=== PATIENT | female | born 1975 ===

== ENCOUNTER 2022-10-03 15:22 | Observation (INO) | payer MEDICARE, BC, MEDICAID, SELFPAY ==
[2022-10-03] VITALS (12 sets, daily range): BP systolic 98–122; BP diastolic 67–79; PULSE 59–76; RESP 6–22; TEMP 36.5; O2SAT 98–100; BMI 19.0
--- NOTE | ~2022-10-03 | CT_ITS ---
EXAMINATION: CT CHEST, ABDOMEN AND PELVIS WITHOUT CONTRAST CLINICAL INFORMATION: Pneumonia and colitis COMPARISON: No pertinent prior studies are available for comparison. TECHNIQUE: Multidetector volumetric imaging was performed from the thoracic inlet through the pubic symphysis without IV contrast. Sagittal and coronal reformatted images were obtained on the technologist's workstation. This CT examination was performed using dose optimization techniques as appropriate, variously including the following: *Automated exposure control *Adjustment of mA and/or kV according to patient size (this includes techniques or standardized protocols for targeted exams where dose is matched to indication/reason for exam; i.e. extremities or head) *Use of iterative reconstruction technique DLP: 493 mGy-cm FINDINGS: CHEST: Lung: There is evidence of COPD with bullous formation. No suspicious lung nodules or masses are seen. No consolidations. Bibasilar atelectasis is present. Mediastinum: The mediastinum is normal. The central vascular structures are unremarkable. No hilar or mediastinal lymphadenopathy. Pericardium/Pleura: No significant effusion. No pleural mass or thickening. Chest Wall/Axilla: Unremarkable ABDOMEN/PELVIS: Peritoneal Space: No significant free air or free fluid identified. Liver, Gallbladder, Biliary Tree: The liver is mildly enlarged at 17.6 cm but demonstrates normal attenuation and shape. No focal hepatic lesion or biliary ductal dilatation is present. The gallbladder is distended and contains small layering calculi without gallbladder wall thickening or obvious pericholecystic inflammatory changes. Pancreas: Unremarkable Spleen: Unremarkable Adrenal Glands: Unremarkable Kidneys and ureters: The kidneys are normal in size, shape, and attenuation. No hydronephrosis, hydroureter, or calculi seen. No perinephric stranding. Bladder: Unremarkable Gastrointestinal Tract: A small hiatal hernia is present. The small and large bowel are unremarkable. The appendix is unremarkable. Abdominal Wall: No significant hernia is appreciated. Lymph Nodes: No lymphadenopathy. Vascular: The aorta appears normal.. The IVC appears unremarkable. PELVIC VISCERA: Unremarkable OSSEUS STRUCTURES: Moderate degenerative changes are noted in the spine from L2 through L5. No bony destructive lesions are seen. CT/CT abdomen pelvis wo IV con IMPRESSION: 1. No evidence of pneumonia or colitis. 2. Incidental note made of COPD, mild hepatomegaly and cholelithiasis. Fleischner guidelines were followed.
--- NOTE | ~2022-10-03 | CT_ITS ---
EXAMINATION: CT HEAD WITHOUT CONTRAST CT CERVICAL SPINE WITHOUT CONTRAST CLINICAL INFORMATION: Drowsiness. COMPARISON: None. TECHNIQUE: Contiguous axial imaging was performed from the skullbase to vertex without intravenous administration of contrast. Multidetector helical imaging was performed through the cervical spine. This CT examination was performed using dose optimization techniques as appropriate, variously including the following: *Automated exposure control *Adjustment of mA and/or kV according to patient size (this includes techniques or standardized protocols for targeted exams where dose is matched to indication/reason for exam; i.e. extremities or head) *Use of iterative reconstruction technique DLP: 924 mGy-cm. FINDINGS: HEAD: There is no evidence of acute intracranial hemorrhage or territorial infarction. No abnormal mass effect or midline shift is seen. Goodson to white matter differentiation is well preserved. No extra-axial fluid collections are identified. The ventricles are normal in size. Brain parenchymal attenuation is normal. The osseous structures and soft tissues are normal. The mastoid air cells and visualized portions of the paranasal sinuses are well aerated. CERVICAL SPINE: No acute fracture is identified in the cervical spine. There is a moderate reversal of the normal cervical lordosis and mild leftward curvature of the cervical spine. Moderate to severe disc space narrowing with disc opacify complexes noted at the C5-C6 and C6-C7 levels. The atlantoaxial articulation is normally maintained. The paraspinal soft tissues are normal. The lung apices are clear with moderate emphysematous changes. CT/CT cervical spine wo IV con IMPRESSION: 1. No acute intracranial pathology. 2. No evidence of acute cervical spine traumatic injury. Moderate lower cervical spondylosis and reversal of the normal cervical lordosis. 3. Moderate emphysematous changes in the visualized lungs.
--- NOTE | 2022-10-03 16:36 | ECG_ITS ---
Test Reason : SLEEPY Blood Pressure : / mmHG Vent. Rate : 060 BPM Atrial Rate : 060 BPM P-R Int : 156 ms QRS Dur : 094 ms QT Int : 452 ms P-R-T Axes : 073 053 047 degrees QTc Int : 452 ms Normal sinus rhythm Normal ECG No previous ECGs available Referred By: Dragan Chaney Electronically Signed By:Jossue Cueva
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
[2022-10-03 17:30] LABS: MANUAL DIFF FLAG NO
[2022-10-03 17:33] LABS: Basophils Percent Auto 0.2 % (0-2); Eosinophils Absolute Auto 0.3 X10*3/uL (0.0-0.4); Eosinophils Percent Auto 4.7 % (0-4); Hematocrit 22.6 % (37.0-47.0); Hemoglobin 7.1 g/dl (12.0-16.0); Imm Gran Abs Auto 0.01 X10*3/uL (0.00-0.03); Imm Gran Pct Auto 0.2 % (0.0-0.4); Lymphocytes Absolute Auto 3.1 X10*3/uL (1.2-4.9); Lymphocytes Percent Auto 55.3 % (20-40); Mean Corpuscular HGB Conc 31.4 g/dl (31.0-35.0); Mean Corpuscular Hemoglobin 27.3 pg (27.0-33.0); Mean Corpuscular Volume 86.9 fL (80.0-98.0); Mean Platelet Volume 10.4 fL (9.4-12.3); Monocytes Absolute Auto 0.5 X10*3/uL (0.1-1.2); Monocytes Percent Auto 9.4 % (2-11); Neutrophils Absolute Auto 1.7 x10*3/uL (2.0-8.3); Neutrophils Percent Auto 30.2 % (45-73); Platelet Count 186 X10*3/uL (160-400); Red Cell Distribution Width 16.2 % (11.0-16.0); White Blood Count 5.5 X10*3/uL (4.8-10.8)
[2022-10-03 17:37] LABS: INTERNATIONAL NORM RATIO 0.9 (0.9-1.1); Prothrombin Time 9.9 SEC (10.0-13.1)
[2022-10-03 17:39] LABS: Partial Thromboplastin Time 28.9 SEC (26.0-36.4)
[2022-10-03 17:43] LABS: Ammonia 20 umol/L (13-55)
[2022-10-03 17:44] LABS: Lactic Acid 0.4 mmol/L (0.5-2.0)
[2022-10-03 17:47] LABS: Ethanol < 10 mg/dL
[2022-10-03 17:49] LABS: Anion Gap 13 (12-20)
[2022-10-03 17:50] LABS: Alanine Aminotransferase 7 U/L (0-31); Albumin Level 3.3 g/dL (3.5-5.0); Alkaline Phosphatase 48 U/L (39-117); Aspartate Amino Transferase 30 U/L (5-31); Bilirubin Total 0.2 mg/dL (0.0-1.0); Blood Urea Nitrogen 25 mg/dL (9-16); Calcium 8.4 mg/dL (8.4-10.2); Carbon Dioxide 24 mmol/L (22-29); Chloride 107 mmol/L (96-108); Creatinine Clr Calc Pharmacy 37.4; Estimated Glomerular Filt Rate 39; Glucose Random 91 mg/dL (60-115); Potassium 3.5 mmol/L (3.3-5.1); Sodium 140 mmol/L (135-145); Total Protein 5.8 g/dL (6.5-8.0)
[2022-10-03 18:02] LABS: Acetaminophen LAB < 17 mcg/mL (<30); Salicylate < 5.0 mg/dL (15-30)
[2022-10-03 18:43] LABS: Appearance Urine Clear; Color Urine Yellow; Glucose Urine UA Negative (Negative); Leukocyte Esterase Urine Negative (Negative); Nitrite Urine Negative (Negative); PH 5.5 (5.0-9.0); Urine Blood Negative (Negative); Urine Ketones Negative (Negative); Urine Protein Negative (Neg-Trace)
[2022-10-03 18:55] LABS: Amphetamine Screen Urine Not Detected (Not Detect); Barbiturates, Urine Not Detected (Not Detect); Benzodiazepines Screen Urine Not Detected (Not Detect); Cannabinoid Screen Urine Not Detected (Not Detect); Cocaine Screen Urine Not Detected (Not Detect); Opiate Screen Urine Not Detected (Not Detect); Phencyclidine Screen Urine Not Detected (Not Detect)
[2022-10-03 18:56] LABS: Fentanyl, urine Not Detected (Not Detect)
[2022-10-03] MEDS: 0.9 % Sodium Chloride 1,000 ML 999 ML IV ×2 (19:00→19:03)
[2022-10-03 20:24] LABS: OBS Int Ctl Valid YES; OBS1 NEGATIVE (NEGATIVE)
[2022-10-03 20:52] LABS: Troponin-I High Sensitivity < 2.7 ng/L (<3.5-17.0)
[2022-10-03 20:53] LABS: Magnesium 2.2 mg/dL (1.6-2.6)
[2022-10-03] MEDS: Haloperidol Lactate 5 MG/ML VIAL IM (21:26)
[2022-10-03] MEDS: LORazepam 2 MG/ML VIAL IM (21:26)
[2022-10-03] MEDS: diphenhydrAMINE HCL 50 MG/ML VIAL IM (21:26)
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
--- NOTE | 2022-10-03 22:01 | PC.NURSE ---
Pt asleep at this time, we were able to get blood from the pt with no complications. senior marketing data analyst has been applied. 1:1 Sitter is at the bedside with the pt.
[2022-10-03 22:14] LABS: VBG Base Excess -3.5 mmol/L; VBG HCO3 22 mmol/L (22-26); VBG pCO2 44 mmHg; VBG pO2 52 mmHg
[2022-10-03 22:16] LABS: Venous Blood Gas Refer to POC result
--- NOTE | 2022-10-03 22:36 | PHA.MEDREC ---
Pharmacy Consult ? Medication Reconciliation Pharmacy has completed the medication reconciliation.
[2022-10-03] MEDS: Naloxone HCl 2 MG/2 ML SYRINGE 1 MG IM (22:42)
--- NOTE | 2022-10-03 22:50 | P.HPHOSP_ITS ---
History of Present Illness Date of Service: 10/03/22 Attending physician on admission: Temitope Gould Chief Complaint: ams, lethargy 47 year old female with history of anxiety/depression, gerd, hypothyroidism presented to the ED for evaluation of lethargy. On exam, patient is unrespons jonathon, unarousable to pain, unable to give history. Per ED note PMFSH Social History Advance Directives: No Advance Directives Information Provided: No Meds Allergies Allergy/AdvReac Type Severity Reaction Status Date / Time No Known Allergies Allergy Verified 10/03/22 16:36 Home Medications Medication Instructions Recorded Confirmed Last Taken Type baclofen 10 mg tablet 10 mg PO BEDTIME 10/03/22 10/03/22 Unknown History baclofen 10 mg tablet 20 mg PO BID 10/03/22 10/03/22 Unknown History clonazepam 0.5 mg disintegrating 0.5 mg PO DAILY PRN anxiety 10/03/22 10/03/22 Unknown History tablet duloxetine 60 mg capsule,delayed 60 mg PO BEDTIME 10/03/22 10/03/22 Unknown History release gabapentin 250 mg/5 mL oral 1,200 mg PO TID 10/03/22 10/03/22 Unknown History solution levothyroxine 75 mcg tablet 75 mcg PO QAM 10/03/22 10/03/22 Unknown History omeprazole 40 mg capsule,delayed 40 mg PO DAILY 10/03/22 10/03/22 Unknown History release quetiapine 50 mg tablet 50 mg PO TID 10/03/22 10/03/22 Unknown History trazodone 100 mg tablet 100 - 150 mg PO BEDTIME 10/03/22 10/03/22 Unknown History Physical Exam Vital Signs and Narrative: Vital Signs: Last Vital Signs Temp 97.7 F 10/03/22 15:52 Pulse 62 10/03/22 18:20 Resp 12 10/03/22 18:20 BP 114/77 10/03/22 20:05 Pulse Ox 99 10/03/22 18:20 O2 Del Method Room Air 10/03/22 18:20 BMI result Body Mass Index 19.0 Results Labs 10/03/22 17:21 10/03/22 17:21 Labs: Laboratory Results - last 24 hr 10/03/22 10/03/22 10/03/22 17:21 17:21 17:21 MCV 86.9 MCH 27.3 MCHC 31.4 RDW 16.2 H Plt Count 186 MPV 10.4 Immature Gran % (Auto) 0.2 Neut % (Auto) 30.2 L Lymph % (Auto) 55.3 H Jefferson % (Auto) 9.4 Eos % (Auto) 4.7 H Baso % (Auto) 0.2 Lymph # (Auto) 3.1 Jefferson # (Auto) 0.5 Eos # (Auto) 0.3 Baso # (Auto) 0.0 Abs Immat Gran (auto) 0.01 Absolute Neuts (auto) 1.7 L Absolute Nucleated RBC 0.000 Nucleated RBC % (auto) 0.0 PT INR APTT VBG pH VBG pCO2 VBG pO2 VBG HCO3 VBG O2 Saturation VBG Base Excess Anion Gap 13 Estim Creat Clear Calc 37.4 Estimated GFR 39 Random Glucose 91 Lactic Acid 0.4 L Calcium 8.4 Magnesium 2.2 Total Bilirubin 0.2 AST 30 ALT 7 Alkaline Phosphatase 48 Ammonia Total Creatine Kinase Troponin I High Sens Total Protein 5.8 L Albumin 3.3 L Urine Color Urine Appearance Urine pH Ur Specific Hamilton Urine Protein Urine Glucose (UA) Urine Ketones Urine Blood Urine Nitrite Ur Leukocyte Esterase Stool Occult Blood Salicylates < 5.0 L Urine Opiates Screen Urine Fentanyl Screen Acetaminophen < 17 Ur Barbiturates Screen Ur Phencyclidine Scrn Ur Amphetamines Screen U Benzodiazepines Scrn Urine Cocaine Screen U Marijuana (THC) Screen Ethyl Alcohol Blood Type Antibody Screen 10/03/22 10/03/22 10/03/22 17:21 17:21 17:21 MCV MCH MCHC RDW Plt Count MPV Immature Gran % (Auto) Neut % (Auto) Lymph % (Auto) Jefferson % (Auto) Eos % (Auto) Baso % (Auto) Lymph # (Auto) Jefferson # (Auto) Eos # (Auto) Baso # (Auto) Abs Immat Gran (auto) Absolute Neuts (auto) Absolute Nucleated RBC Nucleated RBC % (auto) PT 9.9 L INR 0.9 APTT 28.9 VBG pH VBG pCO2 VBG pO2 VBG HCO3 VBG O2 Saturation VBG Base Excess Anion Gap Estim Creat Clear Calc Estimated GFR Random Glucose Lactic Acid Calcium Magnesium Total Bilirubin AST ALT Alkaline Phosphatase Ammonia 20 Total Creatine Kinase 352 H Troponin I High Sens Total Protein Albumin Urine Color Urine Appearance Urine pH Ur Specific Hamilton Urine Protein Urine Glucose (UA) Urine Ketones Urine Blood Urine Nitrite Ur Leukocyte Esterase Stool Occult Blood Salicylates Urine Opiates Screen Urine Fentanyl Screen Acetaminophen Ur Barbiturates Screen Ur Phencyclidine Scrn Ur Amphetamines Screen U Benzodiazepines Scrn Urine Cocaine Screen U Marijuana (THC) Screen Ethyl Alcohol Blood Type Antibody Screen 10/03/22 10/03/22 10/03/22 17:22 18:13 18:36 MCV MCH MCHC RDW Plt Count MPV Immature Gran % (Auto) Neut % (Auto) Lymph % (Auto) Jefferson % (Auto) Eos % (Auto) Baso % (Auto) Lymph # (Auto) Jefferson # (Auto) Eos # (Auto) Baso # (Auto) Abs Immat Gran (auto) Absolute Neuts (auto) Absolute Nucleated RBC Nucleated RBC % (auto) PT INR APTT VBG pH VBG pCO2 VBG pO2 VBG HCO3 VBG O2 Saturation VBG Base Excess Anion Gap Estim Creat Clear Calc Estimated GFR Random Glucose Lactic Acid Calcium Magnesium Total Bilirubin AST ALT Alkaline Phosphatase Ammonia Total Creatine Kinase Troponin I High Sens Total Protein Albumin Urine Color Yellow Urine Appearance Clear Urine pH 5.5 Ur Specific Hamilton 1.010 Urine Protein Negative Urine Glucose (UA) Negative Urine Ketones Negative Urine Blood Negative Urine Nitrite Negative Ur Leukocyte Esterase Negative Stool Occult Blood Salicylates Urine Opiates Screen Urine Fentanyl Screen Acetaminophen Ur Barbiturates Screen Ur Phencyclidine Scrn Ur Amphetamines Screen U Benzodiazepines Scrn Urine Cocaine Screen U Marijuana (THC) Screen Ethyl Alcohol < 10 Blood Type A Positive Antibody Screen NEGATIVE 10/03/22 10/03/22 10/03/22 18:36 19:56 20:02 MCV MCH MCHC RDW Plt Count MPV Immature Gran % (Auto) Neut % (Auto) Lymph % (Auto) Jefferson % (Auto) Eos % (Auto) Baso % (Auto) Lymph # (Auto) Jefferson # (Auto) Eos # (Auto) Baso # (Auto) Abs Immat Gran (auto) Absolute Neuts (auto) Absolute Nucleated RBC Nucleated RBC % (auto) PT INR APTT VBG pH VBG pCO2 VBG pO2 VBG HCO3 VBG O2 Saturation VBG Base Excess Anion Gap Estim Creat Clear Calc Estimated GFR Random Glucose Lactic Acid Calcium Magnesium Total Bilirubin AST ALT Alkaline Phosphatase Ammonia Total Creatine Kinase Troponin I High Sens < 2.7 Total Protein Albumin Urine Color Urine Appearance Urine pH Ur Specific Hamilton Urine Protein Urine Glucose (UA) Urine Ketones Urine Blood Urine Nitrite Ur Leukocyte Esterase Stool Occult Blood NEGATIVE Salicylates Urine Opiates Screen Not Detected Urine Fentanyl Screen Not Detected Acetaminophen Ur Barbiturates Screen Not Detected Ur Phencyclidine Scrn Not Detected Ur Amphetamines Screen Not Detected U Benzodiazepines Scrn Not Detected Urine Cocaine Screen Not Detected U Marijuana (THC) Screen Not Detected Ethyl Alcohol Blood Type Antibody Screen 10/03/22 22:06 MCV MCH MCHC RDW Plt Count MPV Immature Gran % (Auto) Neut % (Auto) Lymph % (Auto) Jefferson % (Auto) Eos % (Auto) Baso % (Auto) Lymph # (Auto) Jefferson # (Auto) Eos # (Auto) Baso # (Auto) Abs Immat Gran (auto) Absolute Neuts (auto) Absolute Nucleated RBC Nucleated RBC % (auto) PT INR APTT VBG pH 7.30 L VBG pCO2 44 VBG pO2 52 VBG HCO3 22 VBG O2 Saturation 80.0 VBG Base Excess -3.5 Anion Gap Estim Creat Clear Calc Estimated GFR Random Glucose Lactic Acid Calcium Magnesium Total Bilirubin AST ALT Alkaline Phosphatase Ammonia Total Creatine Kinase Troponin I High Sens Total Protein Albumin Urine Color Urine Appearance Urine pH Ur Specific Hamilton Urine Protein Urine Glucose (UA) Urine Ketones Urine Blood Urine Nitrite Ur Leukocyte Esterase Stool Occult Blood Salicylates Urine Opiates Screen Urine Fentanyl Screen Acetaminophen Ur Barbiturates Screen Ur Phencyclidine Scrn Ur Amphetamines Screen U Benzodiazepines Scrn Urine Cocaine Screen U Marijuana (THC) Screen Ethyl Alcohol Blood Type Antibody Screen Imaging Radiologist's Impressions: Impressions Cervical Spine CT 10/03/22 19:56 IMPRESSION: 1. No acute intracranial pathology. 2. No evidence of acute cervical spine traumatic injury. Moderate lower cervical spondylosis and reversal of the normal cervical lordosis. 3. Moderate emphysematous changes in the visualized lungs. Head CT 10/03/22 19:56 IMPRESSION: 1. No acute intracranial pathology. 2. No evidence of acute cervical spine traumatic injury. Moderate lower cervical spondylosis and reversal of the normal cervical lordosis. 3. Moderate emphysematous changes in the visualized lungs. Abdomen/Pelvis CT 10/03/22 20:01 IMPRESSION: 1. No evidence of pneumonia or colitis. 2. Incidental note made of COPD, mild hepatomegaly and cholelithiasis. Fleischner guidelines were followed. Chest CT 10/03/22 20:01 IMPRESSION: 1. No evidence of pneumonia or colitis. 2. Incidental note made of COPD, mild hepatomegaly and cholelithiasis. Fleischner guidelines were followed. Assessment and Plan Time Spent With Patient Time: Total time managing care of this patient today ____ minutes.
--- NOTE | 2022-10-03 22:53 | PC.NURSE ---
Pt rspitrations noted to be decreased, Hospital provider at bedside ordered narcan. Pt IV in left AC was pulled and not working and IV was removed. Pt administered IM with provider approval at bedside. A new 20g IV was placed in the right forearm. Pt did respond to painful stimuli. Pt right arm removed from restraints. Pt still asleep, moves and groans in response to sternal rub.
--- NOTE | 2022-10-03 23:05 | PC.NURSE ---
Dr Gould at bedside, I removed the left arm from restraints. Pt respirations around 11 at this time, O2 99%. Pt still asleep, responsive to hard sternal rub only.
--- NOTE | 2022-10-03 23:27 | PC.NURSE ---
Pt responsive to sternal rub, is incoherent when she wakes up and quickly falls back to sleep. Respirations at 12 at this time
[2022-10-04] VITALS (25 sets, daily range): BP systolic 98–175; BP diastolic 53–134; PULSE 52–112; RESP 12–22; TEMP 36.3–37.1; O2SAT 94–100
--- NOTE | 2022-10-04 00:13 | PC.NURSE ---
Pt began to wake up, sitting up and trying to get out of bed. Pt had an episode of incontinence. Pt was changed and redirected into bed. Pt is struggling to follow basic instructions. Pt is very sleepy and is not able to answer questions appropriately.
--- NOTE | 2022-10-04 00:57 | PC.NURSE ---
Pt asleep in bed. Frequently will sit up in bed. Pt is very tired, is willing to sit back and fall back to sleep.
[2022-10-04 01:15] LABS: ABG Refer to POC result
[2022-10-04 01:15] LABS: ABG Base Excess -2.6 mmol/L; ABG HCO3 22 mmol/L (22-26); ABG pCO2 40 mmHg (32-45); ABG pH 7.35 (7.35-7.45); ABG pO2 96 mmHg (83-108)
--- NOTE | 2022-10-04 01:16 | PC.NURSE ---
Pt has been sitting up, attempting to get out of bed. Pt is not following commands. Pt gets put back in bed where she falls asleep for a minute before sitting up and trying to get out of bed again.
--- NOTE | 2022-10-04 01:17 | PM.IMHP ---
History of Present Illness Date of Service: 10/04/22 Chief Complaint: Altered mentation This is a 47-year-old female with pertinent history of hypothyroidism, mood disorder, gastroesophageal reflux disease, chronic back pain who was brought to the ER for evaluation of decreased responsiveness of decreased responsiveness. Unable to obtain history review of systems of the patient. History obtained from chart review and ER provider. Patient was previously admitted at [facility] for similar complaints, encephalopathy was thought to be due to high doses of gabapentin and baclofen. Patient at the time of arrival was with minimal responsiveness even after Narcan. UDS negative. While in the ER, patient became hyperactive and needed to be chemically restrained. She is only eye opening to painful stimulus at the time of my examination. Review of Systems Review of Systems: Yes Unobtainable due to mental status PMFSH Medical History (Updated 10/04/22 @ 01:33 by Temitope Gould MD) Chronic pain Hypothyroid Insomnia Mood disorder Pertinent family history: Unable to obtain Social History Advance Directives: No Advance Directives Information Provided: No Meds Allergies Allergy/AdvReac Type Severity Reaction Status Date / Time No Known Allergies Allergy Verified 10/03/22 16:36 Home Medications Medication Instructions Recorded Confirmed Last Taken Type baclofen 10 mg tablet 10 mg PO BEDTIME 10/03/22 10/03/22 Unknown History baclofen 10 mg tablet 20 mg PO BID 10/03/22 10/03/22 Unknown History clonazepam 0.5 mg disintegrating 0.5 mg PO DAILY PRN anxiety 10/03/22 10/03/22 Unknown History tablet duloxetine 60 mg capsule,delayed 60 mg PO BEDTIME 10/03/22 10/03/22 Unknown History release gabapentin 250 mg/5 mL oral 1,200 mg PO TID 10/03/22 10/03/22 Unknown History solution levothyroxine 75 mcg tablet 75 mcg PO QAM 10/03/22 10/03/22 Unknown History omeprazole 40 mg capsule,delayed 40 mg PO DAILY 10/03/22 10/03/22 Unknown History release quetiapine 50 mg tablet 50 mg PO TID 10/03/22 10/03/22 Unknown History trazodone 100 mg tablet 100 - 150 mg PO BEDTIME 10/03/22 10/03/22 Unknown History Physical Exam Vital Signs and Narrative: Vital Signs: Last Vital Signs Temp 97.7 F 10/03/22 15:52 Pulse 52 10/04/22 00:03 Resp 14 10/04/22 00:03 BP 111/72 10/04/22 00:03 Pulse Ox 99 10/04/22 00:03 O2 Del Method Room Air 10/04/22 00:03 BMI result Body Mass Index 19.0 Young female lying in bed in no distress Neck supple, no JVD Bradycardic, S1-S2 heard Decreased respirations, no wheezing or crackles appreciated Abdomen soft nontender, no guarding, no rigidity Patient is drowsy and only eye opening to painful stimulus Results Labs 10/03/22 17:21 10/03/22 17:21 Labs: Laboratory Results - last 24 hr 10/03/22 10/03/22 10/03/22 17:21 17:21 17:21 MCV 86.9 MCH 27.3 MCHC 31.4 RDW 16.2 H Plt Count 186 MPV 10.4 Immature Gran % (Auto) 0.2 Neut % (Auto) 30.2 L Lymph % (Auto) 55.3 H [place] % (Auto) 9.4 Eos % (Auto) 4.7 H Baso % (Auto) 0.2 Lymph # (Auto) 3.1 [place] # (Auto) 0.5 Eos # (Auto) 0.3 Baso # (Auto) 0.0 Abs Immat Gran (auto) 0.01 Absolute Neuts (auto) 1.7 L Absolute Nucleated RBC 0.000 Nucleated RBC % (auto) 0.0 PT INR APTT O2 Saturation ABG pH at Pt Temp ABG pCO2 at Pt Temp ABG pO2 at Pt Temp ABG HCO3 ABG Base Excess (Actual) VBG pH VBG pCO2 VBG pO2 VBG HCO3 VBG O2 Saturation VBG Base Excess Anion Gap 13 Estim Creat Clear Calc 37.4 Estimated GFR 39 Random Glucose 91 Lactic Acid 0.4 L Calcium 8.4 Magnesium 2.2 Total Bilirubin 0.2 AST 30 ALT 7 Alkaline Phosphatase 48 Ammonia Total Creatine Kinase Troponin I High Sens Total Protein 5.8 L Albumin 3.3 L Urine Color Urine Appearance Urine pH Ur Specific [place] Urine Protein Urine Glucose (UA) Urine Ketones Urine Blood Urine Nitrite Ur Leukocyte Esterase Stool Occult Blood Salicylates < 5.0 L Urine Opiates Screen Urine Fentanyl Screen Acetaminophen < 17 Ur Barbiturates Screen Ur Phencyclidine Scrn Ur Amphetamines Screen U Benzodiazepines Scrn Urine Cocaine Screen U Marijuana (THC) Screen Ethyl Alcohol Blood Type Antibody Screen 10/03/22 10/03/22 10/03/22 17:21 17:21 17:21 MCV MCH MCHC RDW Plt Count MPV Immature Gran % (Auto) Neut % (Auto) Lymph % (Auto) [place] % (Auto) Eos % (Auto) Baso % (Auto) Lymph # (Auto) [place] # (Auto) Eos # (Auto) Baso # (Auto) Abs Immat Gran (auto) Absolute Neuts (auto) Absolute Nucleated RBC Nucleated RBC % (auto) PT 9.9 L INR 0.9 APTT 28.9 O2 Saturation ABG pH at Pt Temp ABG pCO2 at Pt Temp ABG pO2 at Pt Temp ABG HCO3 ABG Base Excess (Actual) VBG pH VBG pCO2 VBG pO2 VBG HCO3 VBG O2 Saturation VBG Base Excess Anion Gap Estim Creat Clear Calc Estimated GFR Random Glucose Lactic Acid Calcium Magnesium Total Bilirubin AST ALT Alkaline Phosphatase Ammonia 20 Total Creatine Kinase 352 H Troponin I High Sens Total Protein Albumin Urine Color Urine Appearance Urine pH Ur Specific [place] Urine Protein Urine Glucose (UA) Urine Ketones Urine Blood Urine Nitrite Ur Leukocyte Esterase Stool Occult Blood Salicylates Urine Opiates Screen Urine Fentanyl Screen Acetaminophen Ur Barbiturates Screen Ur Phencyclidine Scrn Ur Amphetamines Screen U Benzodiazepines Scrn Urine Cocaine Screen U Marijuana (THC) Screen Ethyl Alcohol Blood Type Antibody Screen 10/03/22 10/03/22 10/03/22 17:22 18:13 18:36 MCV MCH MCHC RDW Plt Count MPV Immature Gran % (Auto) Neut % (Auto) Lymph % (Auto) [place] % (Auto) Eos % (Auto) Baso % (Auto) Lymph # (Auto) [place] # (Auto) Eos # (Auto) Baso # (Auto) Abs Immat Gran (auto) Absolute Neuts (auto) Absolute Nucleated RBC Nucleated RBC % (auto) PT INR APTT O2 Saturation ABG pH at Pt Temp ABG pCO2 at Pt Temp ABG pO2 at Pt Temp ABG HCO3 ABG Base Excess (Actual) VBG pH VBG pCO2 VBG pO2 VBG HCO3 VBG O2 Saturation VBG Base Excess Anion Gap Estim Creat Clear Calc Estimated GFR Random Glucose Lactic Acid Calcium Magnesium Total Bilirubin AST ALT Alkaline Phosphatase Ammonia Total Creatine Kinase Troponin I High Sens Total Protein Albumin Urine Color Yellow Urine Appearance Clear Urine pH 5.5 Ur Specific [place] 1.010 Urine Protein Negative Urine Glucose (UA) Negative Urine Ketones Negative Urine Blood Negative Urine Nitrite Negative Ur Leukocyte Esterase Negative Stool Occult Blood Salicylates Urine Opiates Screen Urine Fentanyl Screen Acetaminophen Ur Barbiturates Screen Ur Phencyclidine Scrn Ur Amphetamines Screen U Benzodiazepines Scrn Urine Cocaine Screen U Marijuana (THC) Screen Ethyl Alcohol < 10 Blood Type A Positive Antibody Screen NEGATIVE 10/03/22 10/03/22 10/03/22 18:36 19:56 20:02 MCV MCH MCHC RDW Plt Count MPV Immature Gran % (Auto) Neut % (Auto) Lymph % (Auto) [place] % (Auto) Eos % (Auto) Baso % (Auto) Lymph # (Auto) [place] # (Auto) Eos # (Auto) Baso # (Auto) Abs Immat Gran (auto) Absolute Neuts (auto) Absolute Nucleated RBC Nucleated RBC % (auto) PT INR APTT O2 Saturation ABG pH at Pt Temp ABG pCO2 at Pt Temp ABG pO2 at Pt Temp ABG HCO3 ABG Base Excess (Actual) VBG pH VBG pCO2 VBG pO2 VBG HCO3 VBG O2 Saturation VBG Base Excess Anion Gap Estim Creat Clear Calc Estimated GFR Random Glucose Lactic Acid Calcium Magnesium Total Bilirubin AST ALT Alkaline Phosphatase Ammonia Total Creatine Kinase Troponin I High Sens < 2.7 Total Protein Albumin Urine Color Urine Appearance Urine pH Ur Specific [place] Urine Protein Urine Glucose (UA) Urine Ketones Urine Blood Urine Nitrite Ur Leukocyte Esterase Stool Occult Blood NEGATIVE Salicylates Urine Opiates Screen Not Detected Urine Fentanyl Screen Not Detected Acetaminophen Ur Barbiturates Screen Not Detected Ur Phencyclidine Scrn Not Detected Ur Amphetamines Screen Not Detected U Benzodiazepines Scrn Not Detected Urine Cocaine Screen Not Detected U Marijuana (THC) Screen Not Detected Ethyl Alcohol Blood Type Antibody Screen 10/03/22 10/04/22 22:06 01:07 MCV MCH MCHC RDW Plt Count MPV Immature Gran % (Auto) Neut % (Auto) Lymph % (Auto) [place] % (Auto) Eos % (Auto) Baso % (Auto) Lymph # (Auto) [place] # (Auto) Eos # (Auto) Baso # (Auto) Abs Immat Gran (auto) Absolute Neuts (auto) Absolute Nucleated RBC Nucleated RBC % (auto) PT INR APTT O2 Saturation 98.0 ABG pH at Pt Temp 7.35 ABG pCO2 at Pt Temp 40 ABG pO2 at Pt Temp 96 ABG HCO3 22 ABG Base Excess (Actual) -2.6 VBG pH 7.30 L VBG pCO2 44 VBG pO2 52 VBG HCO3 22 VBG O2 Saturation 80.0 VBG Base Excess -3.5 Anion Gap Estim Creat Clear Calc Estimated GFR Random Glucose Lactic Acid Calcium Magnesium Total Bilirubin AST ALT Alkaline Phosphatase Ammonia Total Creatine Kinase Troponin I High Sens Total Protein Albumin Urine Color Urine Appearance Urine pH Ur Specific [place] Urine Protein Urine Glucose (UA) Urine Ketones Urine Blood Urine Nitrite Ur Leukocyte Esterase Stool Occult Blood Salicylates Urine Opiates Screen Urine Fentanyl Screen Acetaminophen Ur Barbiturates Screen Ur Phencyclidine Scrn Ur Amphetamines Screen U Benzodiazepines Scrn Urine Cocaine Screen U Marijuana (THC) Screen Ethyl Alcohol Blood Type Antibody Screen Imaging Radiologist's Impressions: Impressions Cervical Spine CT 10/03/22 19:56 IMPRESSION: 1. No acute intracranial pathology. 2. No evidence of acute cervical spine traumatic injury. Moderate lower cervical spondylosis and reversal of the normal cervical lordosis. 3. Moderate emphysematous changes in the visualized lungs. Head CT 10/03/22 19:56 IMPRESSION: 1. No acute intracranial pathology. 2. No evidence of acute cervical spine traumatic injury. Moderate lower cervical spondylosis and reversal of the normal cervical lordosis. 3. Moderate emphysematous changes in the visualized lungs. Abdomen/Pelvis CT 10/03/22 20:01 IMPRESSION: 1. No evidence of pneumonia or colitis. 2. Incidental note made of COPD, mild hepatomegaly and cholelithiasis. Fleischner guidelines were followed. Chest CT 10/03/22 20:01 IMPRESSION: 1. No evidence of pneumonia or colitis. 2. Incidental note made of COPD, mild hepatomegaly and cholelithiasis. Fleischner guidelines were followed. Assessment and Plan (1) Acute metabolic encephalopathy: Status: Acute Plan This is a 47-year-old female with pertinent history of hypothyroidism, mood disorder, gastroesophageal reflux disease, chronic back pain who was brought to the ER for evaluation of decreased responsiveness of decreased responsiveness. #. Acute metabolic encephalopathy. ?in the setting of high doses of gabapentin and baclofen. Ammonia normal. Obtaining TSH. Consulting Neurology to optimize. Electrolytes and ABG within normal limits #. Hypothyroidism. On Synthroid. Obtaining TSH as above #. Normocytic anemia. Obtaining iron panel, B12 and folate #. Elevated creatinine. CKD versus KELLY. Unknown baseline. Patient resuscitated with IV crystalloids in the ER. #. Mood disorder. #. Chronic pain #. Gastroesophageal reflux disease -hold p.o. medications until mentation improves and patient is able to take p.o. Med rec pending DVT prophylaxis: Lovenox Full code NPO until mentation improves Time Spent With Patient Time: Total time managing care of this patient today ____ minutes. Quality Stroke Does the patient have a stroke diagnosis?: No VTE Prior VTE?: No VTE Risk Level:: Medical - moderate - high VTE Device Contraindication: Treatment Not Indicated VTE Drug Contraindication: N/A - Med Ordered
--- NOTE | 2022-10-04 01:57 | PC.NURSE ---
Pt assisted to the commode, had a bowel movement, brown and soft in texture. Pt is extremely unsteady on her feet, requiring at least 2 assist. Pt is uncooperative and will not follow instructions. Pt kept falling asleep while standing or sitting on the commode. Pt was assisted back to bed where she was given warm blankets and was asked if she is in any pain, to which she was unable to answer. Pt continues to get up and is unable to follow instructions. Situation was discussed with Dr. Gould who verbal ordered soft restraints. We are trying to avoid more medication due to decreased respirations with the last dose. Soft restraints applied to upper extremities at 01:55. CSM in tact in both upper extremities. Sitter at the bedside.
[2022-10-04 02:07] LABS: Iron 29 mcg/dL (30-160); Percent Iron Saturation 10 % (15-50); Total Iron Binding Capacity 290 mcg/dL (228-428); Unsaturated Iron Binding 261 ug/dL
[2022-10-04 02:22] LABS: Thyroid Stimulating Hormone 0.06 uIU/mL (0.32-4.0)
[2022-10-04] MEDS: Enoxaparin Sodium 40 MG/0.4 ML SYRINGE SUBCUT ×2 (02:39→23:21)
[2022-10-04 02:46] LABS: Folate 15.3 ng/mL (> or = 4.0); Vitamin B12 > 2000 pg/mL (200-900)
[2022-10-04] MEDS: OLANZapine 10 MG VIAL IM (03:19)
--- NOTE | 2022-10-04 04:00 | PC.NURSE ---
Pt asleep in bed. Both soft restraints have been removed. Sitter is still at bedside. CSM in tact x4 extremities. Respirations stable
--- NOTE | 2022-10-04 05:05 | PC.NURSE ---
Pt requested to go to the bathroom and was assisted with toileting in bed. Pt had a large bowel movement. Pt was cleaned and repositioned in bed but tried to get out of bed numerous times. We attempted redirections but pt would not follow instructions. Upper extremities were put in restraints and dr huff ordered IV ativan. Sitter at the bedside.
--- NOTE | 2022-10-04 05:07 | MHC.EDTECH ---
this pct just assumed care of patient ,patient vitals sign taken ,pt was incontinent of large amount of stool ,care given and bedding change ,isa Jones is aware that patient is very restless .
--- NOTE | 2022-10-04 05:07 | MHC.EDTECH ---
Patient found to be incontinent of stool. With help of Nerupa, PCT, Pt was cleaned up, new linen and gown placed. Vitals taken. RN in room.
[2022-10-04] MEDS: LORazepam 2 MG/ML VIAL 1 MG IVPUSH (05:13)
--- NOTE | 2022-10-04 06:02 | MHC.EDTECH ---
MARIA C MANCUSO IS AWARE OF PT LOW BLOOD SUGAR .
[2022-10-04 06:09] LABS: Glucose, Whole Blood 64 mg/dL (60-115)
[2022-10-04] MEDS: Dextrose 10 % 250 ML 750 ML IV (06:23)
[2022-10-04 06:27] LABS: Anion Gap 14 (12-20); Blood Urea Nitrogen 17 mg/dL (9-16); Calcium 8.5 mg/dL (8.4-10.2); Carbon Dioxide 19 mmol/L (22-29); Chloride 116 mmol/L (96-108); Estimated Glomerular Filt Rate > 60; Glucose Random 81 mg/dL (60-115); Potassium 3.6 mmol/L (3.3-5.1); Sodium 145 mmol/L (135-145)
[2022-10-04 09:05] LABS: Basophils Percent Auto 0.1 % (0-2); Eosinophils Absolute Auto 0.1 X10*3/uL (0.0-0.4); Eosinophils Percent Auto 1.5 % (0-4); Hematocrit 31.5 % (37.0-47.0); Hemoglobin 9.8 g/dl (12.0-16.0); Imm Gran Abs Auto 0.02 X10*3/uL (0.00-0.03); Imm Gran Pct Auto 0.2 % (0.0-0.4); Lymphocytes Absolute Auto 1.6 X10*3/uL (1.2-4.9); Lymphocytes Percent Auto 19.4 % (20-40); Mean Corpuscular HGB Conc 31.1 g/dl (31.0-35.0); Mean Corpuscular Hemoglobin 27.1 pg (27.0-33.0); Mean Corpuscular Volume 87.3 fL (80.0-98.0); Mean Platelet Volume 10.6 fL (9.4-12.3); Monocytes Absolute Auto 0.5 X10*3/uL (0.1-1.2); Monocytes Percent Auto 6.5 % (2-11); Neutrophils Absolute Auto 5.8 x10*3/uL (2.0-8.3); Neutrophils Percent Auto 72.3 % (45-73); Platelet Count 241 X10*3/uL (160-400); Red Blood Count 3.61 X10*6/uL (4.20-5.50); Red Cell Distribution Width 16.3 % (11.0-16.0); Retic HGB Equivalent 36.2 pg (30.0-35.0); Reticulocyte Percent 1.1 % (0.5-1.8)
[2022-10-04 09:12] LABS: MANUAL DIFF FLAG NO
[2022-10-04 09:29] LABS: Lactate Dehydrogenase 281 U/L (122-220)
[2022-10-04 09:41] LABS: Free T4 (Free Thyroxine) 0.87 ng/dL (0.71-1.85)
--- NOTE | 2022-10-04 09:56 | P.EN_ITS ---
Event Note Date of Service: 10/04/22 Event Note: day hospitalist update S agitated, delirious, unable to give ROS O VS- T 97.8, P 102, R 20, BP 123/96, SaO2 97 on RA gen- delirious, agitated HEENT- EOMI, no scleral icterus, MMM neck- supple lungs- CTAB CV- RRR no m/r/g abd- soft/NT ext- no edema neuro- oriented only to self, moving all extremities psych- impaired insight labs Hb 7.1->9.8, B12 >2000, folate 15.3 FOBT negative SCr 1.44->0.87 CPK 352->1005 TSH 0.06 imaging CTH no acute disease A/P d#1 47yo F with hypothyroidism, mood disorder, chronic back pain admitted with decreased responsiveness not resolved with naloxone, now with agitated delirium # acute toxic-metabolic encephalopathy - prior episode at [facility] attributed to polypharmacy [clonazepam, duloxteine, quetiapine, gabapentin, and baclofe], so of course we are holding those medications. review [facility] records - Neuro + Psych consults pending # hypothyroidism - TSH over-suppressed, will decrease from 75 to 50 mcg/d of LT4 # FLETCHER - replete Fe orally, FOBT negative # GERD - PPI # VTE ppx: LMWH # dispo: TBD In my clinical judgment, the patient requires continued inpatient hospitalization for the following reasons: encephalopathy Time Spent With Patient Time: Total time managing care of this patient today ____ minutes.
[2022-10-04] MEDS: Omeprazole 40 MG CAPSULE.DR PO (10:05)
[2022-10-04] MEDS: Levothyroxine Sodium 50 MCG TABLET PO (10:05)
[2022-10-04] MEDS: 0.9 % Sodium Chloride 1,000 ML 100 ML IVCONT ×2 (10:06→20:34)
[2022-10-04] MEDS: 0.9 % Sodium Chloride Flush 3 ML SYRINGE IVFLUSH (10:06)
[2022-10-04 10:33] LABS: Glucose, Whole Blood 80 mg/dL (60-115)
--- NOTE | 2022-10-04 12:05 | MHC.EDTECH ---
Patient found to be incontinent of stool. Pt cleaned up by lili ramírez and Ce (nanotechnician). Bedding changed, clean hospital gown put on Pt.
--- NOTE | 2022-10-04 12:58 | MHC.CM.PN ---
Attempted to meet with patient in regards to discharge planning. Patient currently sleeping. No family present. Will attempt to meet again. Continue to monitor for d/c needs.
--- NOTE | 2022-10-04 16:04 | PC.NURSE ---
Queastioned need for sitter for patient coming from ED ,Dr. Root will order a sittert for this patient.
--- NOTE | 2022-10-04 16:19 | PC.NURSE ---
paged to see patient r/t admission from ED for soft wrist restrains, behavioral. Awaiting visit and documentation.
--- NOTE | 2022-10-04 16:34 | PC.NURSE ---
removed bilateral wrists restraints on admission to this floor,1:1 sitter with patient at present,patient is resting quietly
--- NOTE | 2022-10-04 16:34 | MHC.PM.REST ---
Restraint Documentation Date of Service: 10/04/22 Time of Documentation: 16:20 Current Situation: After assessment of the patient, a review of the pertinent medical record and a discussion with nursing staff, I feel the patient can currently come off soft restraints and be managed with a sitter. Reaction To: N/A Medical Condition: Encephalopathy Behavioral State: Agitated delirium, resolving Continued Need: At this point will d/c soft restraints and place sitter for pt safety and use verbal techniques to manage behaviro Time Spent With Patient Time: Total time managing care of this patient today ____ minutes.
--- NOTE | 2022-10-04 17:28 | PM.NEUROCN ---
History of Present Illness Data of Consult Service Date: 10/04/22 Primary Care Provider: Unknown Physician HPI Reason for consult: Unresponsiveness This is a 47-year-old female with h/o hypothyroidism, mood disorder, gastroesophageal reflux disease, chronic back pain who was brought to the ER for evaluation of decreased responsiveness.?History obtained from chart review and ER provider.? Patient was previously admitted at [facility] for similar complaints, encephalopathy was thought to be due to high doses of gabapentin and baclofen.? Patient at the time of arrival was minimally responsive even after Narcan.?Tox screen negative.?Ct brain negative. While in the ER, patient became hyperactive and needed to be chemically restrained. At this time the patient is lethargic and sleeping, but can be aroused she is very drowsy and continues to yawned frequently. She is oriented to person and place only. She tells me that she takes about 1200 and milligram of gabapentin and 10 mg baclofen but doesn't know how many of those and couldn't tell me her what other medicines she is on. She tells me that she did not take any extra pills but her history is unreliable at this time. Review of Systems Review of Systems: sleepyness, possible drug use. Yes Unobtainable due to mental status PMFSH Past Medical History Medical History (Updated 10/04/22 @ 01:33 by Temitope Gould MD) Chronic pain Hypothyroid Insomnia Mood disorder Family History Pertinent family history: Unable to obtain Social History Social History Household Members: Unknown / Unable to assess Unable to assess alcohol history related to: Unable to respond Alcohol intake: never Patient Tobacco Use Status: Tobacco use Unknown Meds Allergies Allergy/AdvReac Type Severity Reaction Status Date / Time No Known Allergies Allergy Verified 10/03/22 16:36 Active Medications: Current Medications Acetaminophen (Acetaminophen 325 Mg Tablet) 650 mg PO Q6H PRN PRN Reason: Pain, Mild (Pain Scale 1-3) Enoxaparin Sodium (Enoxaparin Sodium 40 Mg/0.4 Ml Syringe) 40 mg SUBCUT Q24H [facility] Last Admin: 10/04/22 02:39 Dose: 40 mg Sodium Chloride (Ns) 1,000 mls @ 100 mls/hr IVCONT .Q10H DIANA Last Admin: 10/04/22 10:06 Dose: 100 mls/hr Levothyroxine Sodium (Levothyroxine Sodium 50 Mcg Tablet) 50 mcg PO DAILY [facility] Last Admin: 10/04/22 10:05 Dose: 50 mcg Melatonin (Melatonin 3 Mg Tablet) 6 mg PO BEDTIME PRN PRN Reason: Insomnia Omeprazole (Omeprazole 40 Mg Capsule.) 40 mg PO DAILY@0630 [facility] Last Admin: 10/04/22 10:05 Dose: 40 mg Ondansetron HCl (Ondansetron Hcl 4 Mg/2 Ml Vial) 4 mg IVPUSH Q8H PRN PRN Reason: Nausea and Vomiting Sodium Chloride (0.9 % Sodium Chloride Flush 3 Ml Syringe) 3 ml IVFLUSH QSHIFT [facility] Last Admin: 10/04/22 16:07 Dose: Not Given Home Medications Medication Instructions Recorded Confirmed Last Taken Type baclofen 10 mg tablet 10 mg PO BEDTIME 10/03/22 10/03/22 Unknown History baclofen 10 mg tablet 20 mg PO BID 10/03/22 10/03/22 Unknown History clonazepam 0.5 mg disintegrating 0.5 mg PO DAILY PRN anxiety 10/03/22 10/03/22 Unknown History tablet duloxetine 60 mg capsule,delayed 60 mg PO BEDTIME 10/03/22 10/03/22 Unknown History release gabapentin 250 mg/5 mL oral 1,200 mg PO TID 10/03/22 10/03/22 Unknown History solution levothyroxine 75 mcg tablet 75 mcg PO QAM 10/03/22 10/03/22 Unknown History omeprazole 40 mg capsule,delayed 40 mg PO DAILY 10/03/22 10/03/22 Unknown History release quetiapine 50 mg tablet 50 mg PO TID 10/03/22 10/03/22 Unknown History trazodone 100 mg tablet 100 - 150 mg PO BEDTIME 10/03/22 10/03/22 Unknown History Physical Exam Vital Signs: Vital Signs: Last Vital Signs Temp 97.3 F 10/04/22 16:00 Pulse 67 10/04/22 16:00 Resp 18 10/04/22 16:00 BP 130/75 10/04/22 16:00 Pulse Ox 95 10/04/22 16:00 O2 Del Method Room Air 10/04/22 16:00 BMI result Body Mass Index 19.0 Const: General: intoxicated appearing HEENT: Other: Dilated pupils which can be caused by narcan Head: Yes normal to inspection, Yes No palpable skull fracture present, Yes normocephalic and Yes atraumatic Eyes: Other: Dilated pupils General: appearance normal, both eyes and all related structures Neck: Neck: Yes normal visual inspection, Yes full ROM, Yes no lymphadenopathy, Yes no meningeal signs, Yes trachea midline, Yes supple, No anterior neck swelling and No tender Chest: Chest palpation & inspection: normal inspection of the chest and normal palpation of entire chest wall Resp: Effort & Inspection: normal respiratory effort and able to speak in complete sentences Auscultation: clear to auscultation bilaterally Cardio: Jugular venous distension: no JVD Heart sounds: S1 normal heart sound present and S2 normal heart sound present GI: Inspection: Yes normal to inspection and No abdominal wall ecchymosis Palpation (GI): Soft to palpation, not firm, nontender, no guarding and not rigid : General: No CVA tenderness and Yes no CVA tenderness Back/Spine/Pelvis: Back: no CVA tenderness, No CVA tenderness and No back tenderness Skin: General skin exam: no rashes or lesions noted and elasticity normal Neuro: Other: She is sleepy but arousable easily very drowsy and yawning frequently. Speech is clear it is slightly thick. She is cooperative to a limited degree. Does follow simplee commands. Exam is entirely nonfocal. Neck is supple General: no meningeal signs Extrem: General: Yes normal to inspection and Yes full ROM Psych: Other: Seems under the influence Results Labs 10/04/22 08:39 10/04/22 05:56 Labs: Short CBC 10/03/22 10/04/22 Range/Units 17:21 08:39 WBC 5.5 8.0 (4.8-10.8) X10*3/uL Hgb 7.1 L 9.8 L D (12.0-16.0) g/dl Hct 22.6 L 31.5 L D (37.0-47.0) % Plt Count 186 241 D (160-400) X10*3/uL BMP 10/03/22 10/04/22 17:21 05:56 Sodium 140 145 Potassium 3.5 3.6 Chloride 107 116 H Carbon Dioxide 24 19 L BUN 25 H 17 H Creatinine 1.44 H 0.87 Calcium 8.4 8.5 Cardiac Enzymes 10/03/22 10/04/22 Range/Units 17:21 05:56 Total Creatine Kinase 352 H 1005 H (26-140) U/L Liver Function 10/03/22 Range/Units 17:21 Total Bilirubin 0.2 (0.0-1.0) mg/dL AST 30 (5-31) U/L ALT 7 (0-31) U/L Alkaline Phosphatase 48 (39-117) U/L Albumin 3.3 L (3.5-5.0) g/dL Urine 10/03/22 Range/Units 18:36 Urine Color Yellow Urine Appearance Clear Urine pH 5.5 (5.0-9.0) Ur Specific [place] 1.010 (1.005-1.025) Urine Protein Negative (Neg-Trace) mg/dL Urine Glucose (UA) Negative (Negative) mg/dL Assessment and Plan (1) Acute metabolic encephalopathy: Status: Acute Probable medication induced encephalopathy. She takes a gabapentin and baclofen at home quantities unclear and it's unclear what else she takes. It's unclear if she overdosed on it. She had similar presentation at [facility] a few months ago. Recommendation and reliable review of her medications and contact her PCP, who prescribed these medications to see if she can be tapered off them. She apparently takes these for chronic back pain. Plan This is a 47-year-old female with pertinent history of hypothyroidism, mood disorder, gastroesophageal reflux disease, chronic back pain who was brought to the ER for evaluation of decreased responsiveness of decreased responsiveness. #. Acute metabolic encephalopathy. ?in the setting of high doses of gabapentin and baclofen. Ammonia normal. Obtaining TSH. Consulting Neurology to optimize. Electrolytes and ABG within normal limits #. Hypothyroidism. On Synthroid. Obtaining TSH as above #. Normocytic anemia. Obtaining iron panel, B12 and folate #. Elevated creatinine. CKD versus KELLY. Unknown baseline. Patient resuscitated with IV crystalloids in the ER. #. Mood disorder. #. Chronic pain #. Gastroesophageal reflux disease -hold p.o. medications until mentation improves and patient is able to take p.o. Med rec pending DVT prophylaxis: Lovenox Full code NPO until mentation improves Time Spent With Patient Time: Total time managing care of this patient today ____ minutes. Procedures Date of Service Date of Service: 10/04/22
[2022-10-05 03:41] VITALS: BP 128/77; PULSE 94; RESP 18; TEMP 36.8; O2SAT 96
[2022-10-05 06:05] LABS: Mean Corpuscular HGB Conc 32.1 g/dl (31.0-35.0); Mean Corpuscular Hemoglobin 27.8 pg (27.0-33.0); Mean Corpuscular Volume 86.4 fL (80.0-98.0); Mean Platelet Volume 10.5 fL (9.4-12.3); Platelet Count 232 X10*3/uL (160-400); Red Blood Count 3.24 X10*6/uL (4.20-5.50); Red Cell Distribution Width 16.6 % (11.0-16.0)
[2022-10-05 06:22] LABS: Anion Gap 10 (12-20); Blood Urea Nitrogen 11 mg/dL (9-16); Calcium 7.9 mg/dL (8.4-10.2); Carbon Dioxide 21 mmol/L (22-29); Chloride 118 mmol/L (96-108); Creatinine Clr Calc Pharmacy 71.8; Estimated Glomerular Filt Rate > 60; Glucose Random 91 mg/dL (60-115); Potassium 3.3 mmol/L (3.3-5.1); Sodium 146 mmol/L (135-145)
[2022-10-05] MEDS: Omeprazole 40 MG CAPSULE.DR PO (06:23)
[2022-10-05] MEDS: 0.9 % Sodium Chloride 1,000 ML 100 ML IVCONT (06:26)
[2022-10-05 06:39] LABS: HIV AB/AG Nonreactive (Nonreactive); HIV Num 1 0.05 S/CO (0.00-0.99)
[2022-10-05 06:44] LABS: Syphilis Screen Nonreactive (Nonreactive)
[2022-10-05 07:07] VITALS: BP 130/69; PULSE 73; RESP 16; TEMP 36.6; O2SAT 100
[2022-10-05] MEDS: Levothyroxine Sodium 50 MCG TABLET PO (07:19)
[2022-10-05] MEDS: clonazePAM 0.5 MG TABLET PO (10:53)
[2022-10-05 12:15] LABS: Sodium 146 mmol/L (135-145)
--- NOTE | 2022-10-05 12:57 | P.CNPS_ITS ---
History of Present Illness Date of Service: 10/05/2022 Chief Complaint: AMS Reason for Consult: delirium/capacity Requesting physician: Jolene Root Discussed with referring provider: Yes Sources of Information: patient interviewed, chart reviewed and crisis/core team assessment reviewed HPI Narrative: Mr. Pond is a 47 year-old woman who was brought via EMS after either daughter or pt called 911 reporting difficulty finding words. In the ED, pt presented as confused, lethargic. She had been given narcan with no effect. Utox negative. Head CT negative for acute findings. Pt apparently had similar presentation at [facility] which was thought to be related to combination of gabapentin and baclofen. This bond underwriter attempted to see pt on 10/04 but was soundly asleep after she received haldol and ativan due to agitation. Pt seen in room. She is fully alert, and awake. She reports she remembers prior to EMS coming to her house. She reports she felt she couldn't talk, find words and increasingly got more confused. She reports similar incident but states that when she was at [facility] she was told she was dehydrated. She reports she has been on current medications for years and didn't have any side effects. Pt is fully oriented to place, month, year, situation with some gaps during the time she was here in hospital. She reports she lived most of her life close to [place] and all her providers are in [place]. She reports she recently moved to [facility] due to new job at [facility]. Pt reports she would like to go to [place] to see her director long term care providers. No signs of psychosis or delusions. Pt reports she has hx of depression and anxiety. She denies hx of psychosis or delusions. She also denies hx of inpatient psychiatric hospitalizations. She denies hx of suicide attempts. [facility] Medical History (Updated 10/05/22 @ 14:01 by Jolene Root MD) Chronic pain Hypothyroid Insomnia Mood disorder Diagnostics Vital Signs (24Hr): Vital Signs - 24 hr 10/04/22 14:07 10/04/22 15:30 10/04/22 16:00 Temperature 98.8 F 98.3 F 97.3 F Pulse Rate 87 77 67 Respiratory Rate 13 14 18 Blood Pressure 123/67 131/78 130/75 Pulse Oximetry 98 100 95 Oxygen Delivery Method Room Air Room Air Room Air 10/04/22 19:27 10/05/22 03:41 10/05/22 07:07 Temperature 97.5 F 98.3 F 97.8 F Pulse Rate 85 94 73 Respiratory Rate 16 18 16 Blood Pressure 114/67 128/77 130/69 Pulse Oximetry 98 96 100 Oxygen Delivery Method Room Air Room Air Room Air BMI result Body Mass Index 19.0 Labs 10/05/22 05:47 10/05/22 11:49 Labs: Laboratory Results - last 48 hr 10/03/22 10/03/22 10/03/22 17:21 17:21 17:21 WBC 5.5 RBC 2.60 L Hgb 7.1 L Hct 22.6 L MCV 86.9 MCH 27.3 MCHC 31.4 RDW 16.2 H Plt Count 186 MPV 10.4 Immature Gran % (Auto) 0.2 Neut % (Auto) 30.2 L Lymph % (Auto) 55.3 H [place] % (Auto) 9.4 Eos % (Auto) 4.7 H Baso % (Auto) 0.2 Lymph # (Auto) 3.1 [place] # (Auto) 0.5 Eos # (Auto) 0.3 Baso # (Auto) 0.0 Abs Immat Gran (auto) 0.01 Absolute Neuts (auto) 1.7 L Absolute Nucleated RBC 0.000 Nucleated RBC % (auto) 0.0 Absolute Retic Percent Retic Immature Retic Fraction Retic Hgb Equivalent PT INR APTT O2 Saturation ABG pH at Pt Temp ABG pCO2 at Pt Temp ABG pO2 at Pt Temp ABG HCO3 ABG Base Excess (Actual) VBG pH VBG pCO2 VBG pO2 VBG HCO3 VBG O2 Saturation VBG Base Excess Sodium 140 Potassium 3.5 Chloride 107 Carbon Dioxide 24 Anion Gap 13 BUN 25 H Creatinine 1.44 H Estim Creat Clear Calc 37.4 Estimated GFR 39 POC Glucose Random Glucose 91 Lactic Acid 0.4 L Calcium 8.4 Magnesium 2.2 Iron TIBC % Saturation Unsat Iron Binding Total Bilirubin 0.2 AST 30 ALT 7 Alkaline Phosphatase 48 Ammonia Lactate Dehydrogenase Total Creatine Kinase Troponin I High Sens Total Protein 5.8 L Albumin 3.3 L Vitamin B12 Folate TSH 0.06 L Free T4 Urine Color Urine Appearance Urine pH Ur Specific [place] Urine Protein Urine Glucose (UA) Urine Ketones Urine Blood Urine Nitrite Ur Leukocyte Esterase Stool Occult Blood Salicylates < 5.0 L Urine Opiates Screen Urine Fentanyl Screen Acetaminophen < 17 Ur Barbiturates Screen Ur Phencyclidine Scrn Ur Amphetamines Screen U Benzodiazepines Scrn Urine Cocaine Screen U Marijuana (THC) Screen Ethyl Alcohol T.pallidum Ab (EIA) HIV 1&2 Ab/P24 Ag 4thGn Blood Type Antibody Screen 10/03/22 10/03/22 10/03/22 17:21 17:21 17:21 WBC RBC Hgb Hct MCV MCH MCHC RDW Plt Count MPV Immature Gran % (Auto) Neut % (Auto) Lymph % (Auto) [place] % (Auto) Eos % (Auto) Baso % (Auto) Lymph # (Auto) [place] # (Auto) Eos # (Auto) Baso # (Auto) Abs Immat Gran (auto) Absolute Neuts (auto) Absolute Nucleated RBC Nucleated RBC % (auto) Absolute Retic Percent Retic Immature Retic Fraction Retic Hgb Equivalent PT 9.9 L INR 0.9 APTT 28.9 O2 Saturation ABG pH at Pt Temp ABG pCO2 at Pt Temp ABG pO2 at Pt Temp ABG HCO3 ABG Base Excess (Actual) VBG pH VBG pCO2 VBG pO2 VBG HCO3 VBG O2 Saturation VBG Base Excess Sodium Potassium Chloride Carbon Dioxide Anion Gap BUN Creatinine Estim Creat Clear Calc Estimated GFR POC Glucose Random Glucose Lactic Acid Calcium Magnesium Iron TIBC % Saturation Unsat Iron Binding Total Bilirubin AST ALT Alkaline Phosphatase Ammonia 20 Lactate Dehydrogenase Total Creatine Kinase 352 H Troponin I High Sens Total Protein Albumin Vitamin B12 Folate TSH Free T4 Urine Color Urine Appearance Urine pH Ur Specific [place] Urine Protein Urine Glucose (UA) Urine Ketones Urine Blood Urine Nitrite Ur Leukocyte Esterase Stool Occult Blood Salicylates Urine Opiates Screen Urine Fentanyl Screen Acetaminophen Ur Barbiturates Screen Ur Phencyclidine Scrn Ur Amphetamines Screen U Benzodiazepines Scrn Urine Cocaine Screen U Marijuana (THC) Screen Ethyl Alcohol T.pallidum Ab (EIA) HIV 1&2 Ab/P24 Ag 4thGn Blood Type Antibody Screen 10/03/22 10/03/22 10/03/22 17:22 18:13 18:36 WBC RBC Hgb Hct MCV MCH MCHC RDW Plt Count MPV Immature Gran % (Auto) Neut % (Auto) Lymph % (Auto) [place] % (Auto) Eos % (Auto) Baso % (Auto) Lymph # (Auto) [place] # (Auto) Eos # (Auto) Baso # (Auto) Abs Immat Gran (auto) Absolute Neuts (auto) Absolute Nucleated RBC Nucleated RBC % (auto) Absolute Retic Percent Retic Immature Retic Fraction Retic Hgb Equivalent PT INR APTT O2 Saturation ABG pH at Pt Temp ABG pCO2 at Pt Temp ABG pO2 at Pt Temp ABG HCO3 ABG Base Excess (Actual) VBG pH VBG pCO2 VBG pO2 VBG HCO3 VBG O2 Saturation VBG Base Excess Sodium Potassium Chloride Carbon Dioxide Anion Gap BUN Creatinine Estim Creat Clear Calc Estimated GFR POC Glucose Random Glucose Lactic Acid Calcium Magnesium Iron 29 L TIBC 290 % Saturation 10 L Unsat Iron Binding 261 Total Bilirubin AST ALT Alkaline Phosphatase Ammonia Lactate Dehydrogenase Total Creatine Kinase Troponin I High Sens Total Protein Albumin Vitamin B12 > 2000 H Folate 15.3 TSH Free T4 Urine Color Yellow Urine Appearance Clear Urine pH 5.5 Ur Specific [place] 1.010 Urine Protein Negative Urine Glucose (UA) Negative Urine Ketones Negative Urine Blood Negative Urine Nitrite Negative Ur Leukocyte Esterase Negative Stool Occult Blood Salicylates Urine Opiates Screen Urine Fentanyl Screen Acetaminophen Ur Barbiturates Screen Ur Phencyclidine Scrn Ur Amphetamines Screen U Benzodiazepines Scrn Urine Cocaine Screen U Marijuana (THC) Screen Ethyl Alcohol < 10 T.pallidum Ab (EIA) HIV 1&2 Ab/P24 Ag 4thGn Blood Type A Positive Antibody Screen NEGATIVE 10/03/22 10/03/22 10/03/22 18:36 19:56 20:02 WBC RBC Hgb Hct MCV MCH MCHC RDW Plt Count MPV Immature Gran % (Auto) Neut % (Auto) Lymph % (Auto) [place] % (Auto) Eos % (Auto) Baso % (Auto) Lymph # (Auto) [place] # (Auto) Eos # (Auto) Baso # (Auto) Abs Immat Gran (auto) Absolute Neuts (auto) Absolute Nucleated RBC Nucleated RBC % (auto) Absolute Retic Percent Retic Immature Retic Fraction Retic Hgb Equivalent PT INR APTT O2 Saturation ABG pH at Pt Temp ABG pCO2 at Pt Temp ABG pO2 at Pt Temp ABG HCO3 ABG Base Excess (Actual) VBG pH VBG pCO2 VBG pO2 VBG HCO3 VBG O2 Saturation VBG Base Excess Sodium Potassium Chloride Carbon Dioxide Anion Gap BUN Creatinine Estim Creat Clear Calc Estimated GFR POC Glucose Random Glucose Lactic Acid Calcium Magnesium Iron TIBC % Saturation Unsat Iron Binding Total Bilirubin AST ALT Alkaline Phosphatase Ammonia Lactate Dehydrogenase Total Creatine Kinase Troponin I High Sens < 2.7 Total Protein Albumin Vitamin B12 Folate TSH Free T4 Urine Color Urine Appearance Urine pH Ur Specific [place] Urine Protein Urine Glucose (UA) Urine Ketones Urine Blood Urine Nitrite Ur Leukocyte Esterase Stool Occult Blood NEGATIVE Salicylates Urine Opiates Screen Not Detected Urine Fentanyl Screen Not Detected Acetaminophen Ur Barbiturates Screen Not Detected Ur Phencyclidine Scrn Not Detected Ur Amphetamines Screen Not Detected U Benzodiazepines Scrn Not Detected Urine Cocaine Screen Not Detected U Marijuana (THC) Screen Not Detected Ethyl Alcohol T.pallidum Ab (EIA) HIV 1&2 Ab/P24 Ag 4thGn Blood Type Antibody Screen 10/03/22 10/04/22 10/04/22 22:06 01:07 05:56 WBC RBC Hgb Hct MCV MCH MCHC RDW Plt Count MPV Immature Gran % (Auto) Neut % (Auto) Lymph % (Auto) [place] % (Auto) Eos % (Auto) Baso % (Auto) Lymph # (Auto) [place] # (Auto) Eos # (Auto) Baso # (Auto) Abs Immat Gran (auto) Absolute Neuts (auto) Absolute Nucleated RBC Nucleated RBC % (auto) Absolute Retic Percent Retic Immature Retic Fraction Retic Hgb Equivalent PT INR APTT O2 Saturation 98.0 ABG pH at Pt Temp 7.35 ABG pCO2 at Pt Temp 40 ABG pO2 at Pt Temp 96 ABG HCO3 22 ABG Base Excess (Actual) -2.6 VBG pH 7.30 L VBG pCO2 44 VBG pO2 52 VBG HCO3 22 VBG O2 Saturation 80.0 VBG Base Excess -3.5 Sodium 145 Potassium 3.6 Chloride 116 H Carbon Dioxide 19 L Anion Gap 14 BUN 17 H Creatinine 0.87 Estim Creat Clear Calc 62.0 Estimated GFR > 60 POC Glucose Random Glucose 81 Lactic Acid Calcium 8.5 Magnesium Iron TIBC % Saturation Unsat Iron Binding Total Bilirubin AST ALT Alkaline Phosphatase Ammonia Lactate Dehydrogenase 281 H Total Creatine Kinase 1005 H Troponin I High Sens Total Protein Albumin Vitamin B12 Folate TSH Free T4 0.87 Urine Color Urine Appearance Urine pH Ur Specific [place] Urine Protein Urine Glucose (UA) Urine Ketones Urine Blood Urine Nitrite Ur Leukocyte Esterase Stool Occult Blood Salicylates Urine Opiates Screen Urine Fentanyl Screen Acetaminophen Ur Barbiturates Screen Ur Phencyclidine Scrn Ur Amphetamines Screen U Benzodiazepines Scrn Urine Cocaine Screen U Marijuana (THC) Screen Ethyl Alcohol T.pallidum Ab (EIA) HIV 1&2 Ab/P24 Ag 4thGn Blood Type Antibody Screen 10/04/22 10/04/22 10/04/22 06:02 08:39 10:29 WBC 8.0 RBC 3.61 L D Hgb 9.8 L D Hct 31.5 L D MCV 87.3 MCH 27.1 MCHC 31.1 RDW 16.3 H Plt Count 241 D MPV 10.6 Immature Gran % (Auto) 0.2 Neut % (Auto) 72.3 Lymph % (Auto) 19.4 L [place] % (Auto) 6.5 Eos % (Auto) 1.5 Baso % (Auto) 0.1 Lymph # (Auto) 1.6 [place] # (Auto) 0.5 Eos # (Auto) 0.1 Baso # (Auto) 0.0 Abs Immat Gran (auto) 0.02 Absolute Neuts (auto) 5.8 Absolute Nucleated RBC 0.000 Nucleated RBC % (auto) 0.0 Absolute Retic 0.040 Percent Retic 1.1 Immature Retic Fraction 21.0 H Retic Hgb Equivalent 36.2 H PT INR APTT O2 Saturation ABG pH at Pt Temp ABG pCO2 at Pt Temp ABG pO2 at Pt Temp ABG HCO3 ABG Base Excess (Actual) VBG pH VBG pCO2 VBG pO2 VBG HCO3 VBG O2 Saturation VBG Base Excess Sodium Potassium Chloride Carbon Dioxide Anion Gap BUN Creatinine Estim Creat Clear Calc Estimated GFR POC Glucose 64 80 Random Glucose Lactic Acid Calcium Magnesium Iron TIBC % Saturation Unsat Iron Binding Total Bilirubin AST ALT Alkaline Phosphatase Ammonia Lactate Dehydrogenase Total Creatine Kinase Troponin I High Sens Total Protein Albumin Vitamin B12 Folate TSH Free T4 Urine Color Urine Appearance Urine pH Ur Specific [place] Urine Protein Urine Glucose (UA) Urine Ketones Urine Blood Urine Nitrite Ur Leukocyte Esterase Stool Occult Blood Salicylates Urine Opiates Screen Urine Fentanyl Screen Acetaminophen Ur Barbiturates Screen Ur Phencyclidine Scrn Ur Amphetamines Screen U Benzodiazepines Scrn Urine Cocaine Screen U Marijuana (THC) Screen Ethyl Alcohol T.pallidum Ab (EIA) HIV 1&2 Ab/P24 Ag 4thGn Blood Type Antibody Screen 10/05/22 10/05/22 10/05/22 05:47 05:47 05:47 WBC 6.0 RBC 3.24 L Hgb 9.0 L Hct 28.0 L MCV 86.4 MCH 27.8 MCHC 32.1 RDW 16.6 H Plt Count 232 MPV 10.5 Immature Gran % (Auto) Neut % (Auto) Lymph % (Auto) [place] % (Auto) Eos % (Auto) Baso % (Auto) Lymph # (Auto) [place] # (Auto) Eos # (Auto) Baso # (Auto) Abs Immat Gran (auto) Absolute Neuts (auto) Absolute Nucleated RBC 0.000 Nucleated RBC % (auto) 0.0 Absolute Retic Percent Retic Immature Retic Fraction Retic Hgb Equivalent PT INR APTT O2 Saturation ABG pH at Pt Temp ABG pCO2 at Pt Temp ABG pO2 at Pt Temp ABG HCO3 ABG Base Excess (Actual) VBG pH VBG pCO2 VBG pO2 VBG HCO3 VBG O2 Saturation VBG Base Excess Sodium 146 H Potassium 3.3 Chloride 118 H Carbon Dioxide 21 L Anion Gap 10 L BUN 11 Creatinine 0.75 Estim Creat Clear Calc 71.8 Estimated GFR > 60 POC Glucose Random Glucose 91 Lactic Acid Calcium 7.9 L D Magnesium Iron TIBC % Saturation Unsat Iron Binding Total Bilirubin AST ALT Alkaline Phosphatase Ammonia Lactate Dehydrogenase Total Creatine Kinase 634 H Troponin I High Sens Total Protein Albumin Vitamin B12 Folate TSH Free T4 Urine Color Urine Appearance Urine pH Ur Specific [place] Urine Protein Urine Glucose (UA) Urine Ketones Urine Blood Urine Nitrite Ur Leukocyte Esterase Stool Occult Blood Salicylates Urine Opiates Screen Urine Fentanyl Screen Acetaminophen Ur Barbiturates Screen Ur Phencyclidine Scrn Ur Amphetamines Screen U Benzodiazepines Scrn Urine Cocaine Screen U Marijuana (THC) Screen Ethyl Alcohol T.pallidum Ab (EIA) Nonreactive HIV 1&2 Ab/P24 Ag 4thGn Blood Type Antibody Screen 10/05/22 10/05/22 05:47 11:49 WBC RBC Hgb Hct MCV MCH MCHC RDW Plt Count MPV Immature Gran % (Auto) Neut % (Auto) Lymph % (Auto) [place] % (Auto) Eos % (Auto) Baso % (Auto) Lymph # (Auto) [place] # (Auto) Eos # (Auto) Baso # (Auto) Abs Immat Gran (auto) Absolute Neuts (auto) Absolute Nucleated RBC Nucleated RBC % (auto) Absolute Retic Percent Retic Immature Retic Fraction Retic Hgb Equivalent PT INR APTT O2 Saturation ABG pH at Pt Temp ABG pCO2 at Pt Temp ABG pO2 at Pt Temp ABG HCO3 ABG Base Excess (Actual) VBG pH VBG pCO2 VBG pO2 VBG HCO3 VBG O2 Saturation VBG Base Excess Sodium 146 H Potassium Chloride Carbon Dioxide Anion Gap BUN Creatinine Estim Creat Clear Calc Estimated GFR POC Glucose Random Glucose Lactic Acid Calcium Magnesium Iron TIBC % Saturation Unsat Iron Binding Total Bilirubin AST ALT Alkaline Phosphatase Ammonia Lactate Dehydrogenase Total Creatine Kinase Troponin I High Sens Total Protein Albumin Vitamin B12 Folate TSH Free T4 Urine Color Urine Appearance Urine pH Ur Specific [place] Urine Protein Urine Glucose (UA) Urine Ketones Urine Blood Urine Nitrite Ur Leukocyte Esterase Stool Occult Blood Salicylates Urine Opiates Screen Urine Fentanyl Screen Acetaminophen Ur Barbiturates Screen Ur Phencyclidine Scrn Ur Amphetamines Screen U Benzodiazepines Scrn Urine Cocaine Screen U Marijuana (THC) Screen Ethyl Alcohol T.pallidum Ab (EIA) HIV 1&2 Ab/P24 Ag 4thGn Nonreactive Blood Type Antibody Screen Imaging Radiology Impressions: ITS Impressions Cervical Spine CT 10/03/22 19:56 IMPRESSION: 1. No acute intracranial pathology. 2. No evidence of acute cervical spine traumatic injury. Moderate lower cervical spondylosis and reversal of the normal cervical lordosis. 3. Moderate emphysematous changes in the visualized lungs. Head CT 10/03/22 19:56 IMPRESSION: 1. No acute intracranial pathology. 2. No evidence of acute cervical spine traumatic injury. Moderate lower cervical spondylosis and reversal of the normal cervical lordosis. 3. Moderate emphysematous changes in the visualized lungs. Abdomen/Pelvis CT 10/03/22 20:01 IMPRESSION: 1. No evidence of pneumonia or colitis. 2. Incidental note made of COPD, mild hepatomegaly and cholelithiasis. Fleischner guidelines were followed. Chest CT 10/03/22 20:01 IMPRESSION: 1. No evidence of pneumonia or colitis. 2. Incidental note made of COPD, mild hepatomegaly and cholelithiasis. Fleischner guidelines were followed. Mental Status Exam Mental Status Exam Narrative: Appearance: wearing hospital gown, fair hygiene, in NAD Behavior: cooperative Psychomotor: no agitation or retardation noted Speech: clear, normal rate/rhythm/volume, spontaneous TP: linear TC: no over psychosis or delusions Mood: better Affect: congruent SI: denies HI: denies Delusions: none Insight/judgment: fair x 2. Memory/cog: alert, oriented x 4. Medications Medications Current Medications Acetaminophen (Acetaminophen 325 Mg Tablet) 650 mg PO Q6H PRN PRN Reason: Pain, Mild (Pain Scale 1-3) Clonazepam (Clonazepam 0.5 Mg Tablet) 0.5 mg PO DAILY PRN PRN Reason: anxiety Last Admin: 10/05/22 10:53 Dose: 0.5 mg Enoxaparin Sodium (Enoxaparin Sodium 40 Mg/0.4 Ml Syringe) 40 mg SUBCUT Q24H [facility] Last Admin: 10/04/22 23:21 Dose: 40 mg Levothyroxine Sodium (Levothyroxine Sodium 50 Mcg Tablet) 50 mcg PO DAILY [facility] Last Admin: 10/05/22 07:19 Dose: 50 mcg Melatonin (Melatonin 3 Mg Tablet) 6 mg PO BEDTIME PRN PRN Reason: Insomnia Omeprazole (Omeprazole 40 Mg Capsule.Dr) 40 mg PO DAILY@0630 [facility] Last Admin: 10/05/22 06:23 Dose: 40 mg Ondansetron HCl (Ondansetron Hcl 4 Mg/2 Ml Vial) 4 mg IVPUSH Q8H PRN PRN Reason: Nausea and Vomiting Sodium Chloride (0.9 % Sodium Chloride Flush 3 Ml Syringe) 3 ml IVFLUSH QSHIFT [facility] Last Admin: 10/05/22 07:16 Dose: Not Given Allergies Allergies Allergy/AdvReac Type Severity Reaction Status Date / Time No Known Allergies Allergy Verified 10/03/22 16:36 Assessment & Plan Assessment & Plan (1) Acute metabolic encephalopathy: Status: Acute Code(s): G93.41 - Metabolic encephalopathy Plan Mrs. Pond is a 47 year-old woman who was brought via EMS [place] [facility] [place] as confused, lethergic. Utox negative. Given narcan with no effect. Head CT neg. CBC, CMP grossly unremarkable. Pt apparently had similar presentation to [facility] which was thought to be related to gabapentin. During admission here, pt's medications including baclofen, gabapentin, clonazepam were held. Pt today appears much improved in terms of delirum. Her attention is intact, she is showing increase insight into events leading to this admission and understanding of condition treated here in the hospital. She is able to ask a ppropriate questions about labs and work up done while she has been here. No s/s of psychosis. Unclear etiology of delirium but baclofen and gabapentin can cause confusion that often present with difficulty finding words progressing to delirium and ataxic changes. PLAN 1. appears much improved from delirum. 2. At this time, pt does show capacity to make medical decision. Total time managing care of this patient today ____ minutes.
--- NOTE | 2022-10-05 13:44 | P.DS_ITS ---
DS: Providers Provider Date of Service: 10/05/22 Date of admission: 10/04/22 01:16 Date of discharge: 10/05/22 Primary care physician: Unknown Physician Consults: 10/04/22 01:43 Consult to Neurology Routine Consulting Provider: [facility] Reason for consultation: Acute encephalopathy 10/04/22 10:12 Consult to Psychiatry Routine Consulting Provider: Psych Covering Reason for consultation: encephalopathy, delirium polypharmacy 10/04/22 16:27 Consult for Sitter Routine Reason for consultation: agitated delirium 10/05/22 09:15 Consult to Care Team Stat Comment: Reason for consultation: anxiety, encephalopathy, medically cleared 10/05/22 09:19 Consult to Psychiatry Stat Consulting Provider: Psych Covering Reason for consultation: 2nd request. Encephalopathy due to polypharmacy DS: Diagnosis Discharge Diagnosis (1) Toxic metabolic encephalopathy: Status: Acute (2) KELLY (acute kidney injury): Status: Acute DS: Summary Hospital Course Hospital Course: from admission H+P by hospitalist Lanette Gould MD, 10/04/22: This is a 47-year-old female with pertinent history of hypothyroidism, mood dis order, gastroesophageal reflux disease, chronic back pain who was brought to the ER for evaluation of decreased responsiveness of decreased responsiveness.? Unable to obtain history review of systems of the patient.? History obtained from chart review and ER provider.? Patient was previously admitted at [facility] for similar complaints, encephalopathy was thought to be due to high doses of gabapentin and baclofen.? Patient at the time of arrival was with minimal responsiveness even after Narcan.? UDS negative.? While in the ER, patient became hyperactive and needed to be chemically restrained. She is only eye opening to painful stimulus at the time of my examination. 47yo F with hypothyroidism, mood disorder, chronic back pain admitted with decreased responsiveness not resolved with naloxone, admitted with agitated delirium. Prior episode at [facility] attributed to polypharmacy [clonazepam, duloxteine, quetiapine, gabapentin, trazodone, and baclofen] in the face of KELLY. These medications were held and her mental status returned to normal. We suggested her duloxetine be havled along with her gabapentin, and that she should stop quetiapine, trazodone, and baclofen. She was discharged home and will follow up wit her outpatient primary care and pain management doctors. As for hypothyroidism, TSH was over-suppressed, so LT4 dose decreased from 75 to 50 mcg/d of LT4. Unfortunately, she did not wait for her discharge paperworked and chose to sign out against medical advice despite counseling on the risks of doing so. Time Spent with Patient Time attestation: Total time managing care of this patient today _35___ minutes. Discharge coordination time: Greater than 30 minutes Quality: Safe Use of Opioids Does Pt have an Active Cancer Diagnosis on the Problem List?: No Quality: Stroke Does the patient have a stroke diagnosis?: No Physical Exam Vital Signs: Vital Signs: Last Vital Signs Temp 97.8 F 10/05/22 07:07 Pulse 73 10/05/22 07:07 Resp 16 10/05/22 07:07 BP 130/69 10/05/22 07:07 Pulse Ox 100 10/05/22 07:07 O2 Del Method Room Air 10/05/22 07:07 BMI result Body Mass Index 19.0 Gen: in no acute distress HEENT: sclera anicteric, moist mucus membranes Neck: supple Lungs: clear to auscultation bilaterally Heart: regular rate and rhythm, no murmurs Abd: soft, non-tender, non-distended Ext: no edema Skin: warm/well-perfused Neuro: alert and oriented x3, no focal findings Psych: appropriate affect DS: Data Data Completed and Pending Completed studies during hospitalization [Text1]: Laboratory Results WBC 6.0 X10*3/uL (4.8-10.8) 10/05/22 05:47 RBC 3.24 X10*6/uL (4.20-5.50) L 10/05/22 05:47 Hgb 9.0 g/dl (12.0-16.0) L 10/05/22 05:47 Hct 28.0 % (37.0-47.0) L 10/05/22 05:47 MCV 86.4 fL (80.0-98.0) 10/05/22 05:47 MCH 27.8 pg (27.0-33.0) 10/05/22 05:47 MCHC 32.1 g/dl (31.0-35.0) 10/05/22 05:47 RDW 16.6 % (11.0-16.0) H 10/05/22 05:47 Plt Count 232 X10*3/uL (160-400) 10/05/22 05:47 MPV 10.5 fL (9.4-12.3) 10/05/22 05:47 Immature Gran % (Auto) 0.2 % (0.0-0.4) 10/04/22 08:39 Neut % (Auto) 72.3 % (45-73) 10/04/22 08:39 Lymph % (Auto) 19.4 % (20-40) L 10/04/22 08:39 [place] % (Auto) 6.5 % (2-11) 10/04/22 08:39 Eos % (Auto) 1.5 % (0-4) 10/04/22 08:39 Baso % (Auto) 0.1 % (0-2) 10/04/22 08:39 Lymph # (Auto) 1.6 X10*3/uL (1.2-4.9) 10/04/22 08:39 [place] # (Auto) 0.5 X10*3/uL (0.1-1.2) 10/04/22 08:39 Eos # (Auto) 0.1 X10*3/uL (0.0-0.4) 10/04/22 08:39 Baso # (Auto) 0.0 X10*3/uL (0.0-0.2) 10/04/22 08:39 Abs Immat Gran (auto) 0.02 X10*3/uL (0.00-0.03) 10/04/22 08:39 Absolute Neuts (auto) 5.8 x10*3/uL (2.0-8.3) 10/04/22 08:39 Absolute Nucleated RBC 0.000 X10*3/uL (0.0-0.012) 10/05/22 05:47 Nucleated RBC % (auto) 0.0 /100WBC (0.0-0.2) 10/05/22 05:47 Absolute Retic 0.040 X10*6/uL (0.026-0.095) 10/04/22 08:39 Percent Retic 1.1 % (0.5-1.8) 10/04/22 08:39 Immature Retic Fraction 21.0 % (3.0-15.9) H 10/04/22 08:39 Retic Hgb Equivalent 36.2 pg (30.0-35.0) H 10/04/22 08:39 PT 9.9 SEC (10.0-13.1) L 10/03/22 17:21 INR 0.9 (0.9-1.1) 10/03/22 17:21 APTT 28.9 SEC (26.0-36.4) 10/03/22 17:21 O2 Saturation 98.0 % 10/04/22 01:07 ABG pH at Pt Temp 7.35 (7.35-7.45) 10/04/22 01:07 ABG pCO2 at Pt Temp 40 mmHg (32-45) 10/04/22 01:07 ABG pO2 at Pt Temp 96 mmHg (83-108) 10/04/22 01:07 ABG HCO3 22 mmol/L (22-26) 10/04/22 01:07 ABG Base Excess (Actual) -2.6 mmol/L 10/04/22 01:07 VBG pH 7.30 (7.32-7.43) L 10/03/22 22:06 VBG pCO2 44 mmHg 10/03/22 22:06 VBG pO2 52 mmHg 10/03/22 22:06 VBG HCO3 22 mmol/L (22-26) 10/03/22 22:06 VBG O2 Saturation 80.0 % 10/03/22 22:06 VBG Base Excess -3.5 mmol/L 10/03/22 22:06 Sodium 146 mmol/L (135-145) H 10/05/22 11:49 Potassium 3.3 mmol/L (3.3-5.1) 10/05/22 05:47 Chloride 118 mmol/L (96-108) H 10/05/22 05:47 Carbon Dioxide 21 mmol/L (22-29) L 10/05/22 05:47 Anion Gap 10 (12-20) L 10/05/22 05:47 BUN 11 mg/dL (9-16) 10/05/22 05:47 Creatinine 0.75 mg/dL (0.5-1.4) 10/05/22 05:47 Estim Creat Clear Calc 71.8 10/05/22 05:47 Estimated GFR > 60 10/05/22 05:47 POC Glucose 80 mg/dL (60-115) 10/04/22 10:29 Random Glucose 91 mg/dL (60-115) 10/05/22 05:47 Lactic Acid 0.4 mmol/L (0.5-2.0) L 10/03/22 17:21 Calcium 7.9 mg/dL (8.4-10.2) L D 10/05/22 05:47 Magnesium 2.2 mg/dL (1.6-2.6) 10/03/22 17:21 Iron 29 mcg/dL (30-160) L 10/03/22 17:22 TIBC 290 mcg/dL (228-428) 10/03/22 17:22 % Saturation 10 % (15-50) L 10/03/22 17:22 Unsat Iron Binding 261 ug/dL 10/03/22 17:22 Total Bilirubin 0.2 mg/dL (0.0-1.0) 10/03/22 17:21 AST 30 U/L (5-31) 10/03/22 17:21 ALT 7 U/L (0-31) 10/03/22 17:21 Alkaline Phosphatase 48 U/L (39-117) 10/03/22 17:21 Ammonia 20 umol/L (13-55) 10/03/22 17:21 Lactate Dehydrogenase 281 U/L (122-220) H 10/04/22 05:56 Total Creatine Kinase 634 U/L (26-140) H 10/05/22 05:47 Troponin I High Sens < 2.7 ng/L (<3.5-17.0) 10/03/22 20:02 Total Protein 5.8 g/dL (6.5-8.0) L 10/03/22 17:21 Albumin 3.3 g/dL (3.5-5.0) L 10/03/22 17:21 Vitamin B12 > 2000 pg/mL (200-900) H 10/03/22 17:22 Folate 15.3 ng/mL (> or = 4.0) 10/03/22 17:22 TSH 0.06 uIU/mL (0.32-4.0) L 10/03/22 17:21 Free T4 0.87 ng/dL (0.71-1.85) 10/04/22 05:56 Urine Color Yellow 10/03/22 18:36 Urine Appearance Clear 10/03/22 18:36 Urine pH 5.5 (5.0-9.0) 10/03/22 18:36 Ur Specific [place] 1.010 (1.005-1.025) 10/03/22 18:36 Urine Protein Negative mg/dL (Neg-Trace) 10/03/22 18:36 Urine Glucose (UA) Negative mg/dL (Negative) 10/03/22 18:36 Urine Ketones Negative mg/dL (Negative) 10/03/22 18:36 Urine Blood Negative (Negative) 10/03/22 18:36 Urine Nitrite Negative (Negative) 10/03/22 18:36 Ur Leukocyte Esterase Negative (Negative) 10/03/22 18:36 Stool Occult Blood NEGATIVE (NEGATIVE) 10/03/22 19:56 Salicylates < 5.0 mg/dL (15-30) L 10/03/22 17:21 Urine Opiates Screen Not Detected (Not Detect) 10/03/22 18:36 Urine Fentanyl Screen Not Detected (Not Detect) 10/03/22 18:36 Acetaminophen < 17 mcg/mL (<30) 10/03/22 17:21 Ur Barbiturates Screen Not Detected (Not Detect) 10/03/22 18:36 Ur Phencyclidine Scrn Not Detected (Not Detect) 10/03/22 18:36 Ur Amphetamines Screen Not Detected (Not Detect) 10/03/22 18:36 U Benzodiazepines Scrn Not Detected (Not Detect) 10/03/22 18:36 Urine Cocaine Screen Not Detected (Not Detect) 10/03/22 18:36 U Marijuana (THC) Screen Not Detected (Not Detect) 10/03/22 18:36 Ethyl Alcohol < 10 mg/dL 10/03/22 17:22 T.pallidum Ab (EIA) Nonreactive (Nonreactive) 10/05/22 05:47 HIV 1&2 Ab/P24 Ag 4thGn Nonreactive (Nonreactive) 10/05/22 05:47 Blood Type A Positive 10/03/22 18:13 Antibody Screen NEGATIVE 10/03/22 18:[address] 10/03/22 19:56 IMPRESSION: 1. No acute intracranial pathology. 2. No evidence of acute cervical spine traumatic injury. Moderate lower cervical spondylosis and reversal of the normal cervical lordosis. 3. Moderate emphysematous changes in the visualized lungs. Head CT 10/03/22 19:56 IMPRESSION: 1. No acute intracranial pathology. 2. No evidence of acute cervical spine traumatic injury. Moderate lower cervical spondylosis and reversal of the normal cervical lordosis. 3. Moderate emphysematous changes in the visualized lungs. Abdomen/Pelvis CT 10/03/22 20:01 IMPRESSION: 1. No evidence of pneumonia or colitis. 2. Incidental note made of COPD, mild hepatomegaly and cholelithiasis. Fleischner guidelines were followed. Chest CT 10/03/22 20:01 IMPRESSION: 1. No evidence of pneumonia or colitis. 2. Incidental note made of COPD, mild hepatomegaly and cholelithiasis. Fleischner guidelines were followed. Discharge Plan Discharge Patient Disposition: Left Against Medical Advice Discharge Diagnosis: toxic metabolic encephalopathy due to acute kidney kidney over-suppressed TSH Referrals: Physician,Ce J [Primary Care Provider] - 1 Week Discharge Medications: New duloxetine 30 mg capsule,delayed release(DR/EC) 30 mg PO DAILY Qty: 30 0RF Rx Instructions: Replaces prior dose of 60 mg daily levothyroxine 50 mcg tablet 50 mcg PO DAILY Qty: 30 0RF Rx Instructions: replaces prior dose of 75 mcg daily Continued gabapentin 250 mg/5 mL solution 1,200 mg PO TID omeprazole 40 mg capsule,delayed release(DR/EC) 40 mg PO DAILY clonazepam 0.5 mg tablet,disintegrating 0.5 mg PO DAILY PRN (Reason: anxiety) Discontinued levothyroxine 75 mcg tablet 75 mcg PO QAM trazodone 100 mg tablet 100 - 150 mg PO BEDTIME baclofen 10 mg tablet 10 mg PO BEDTIME baclofen 10 mg tablet 20 mg PO BID duloxetine 60 mg capsule,delayed release(DR/EC) 60 mg PO BEDTIME quetiapine 50 mg tablet 50 mg PO TID Discharge Orders: Discharge Order (Routine); Ordered 10/05/22 Ordered By: Jolene Root Diet: Advance to usual diet Activity on Discharge: As tolerated Care Plan Goals: normal mental status Health Concerns: toxic metabolic encephalopathy due to acute kidney injury over-suppressed TSH Plan of Treatment: KELLY resolved drink plenty of water STOP baclofen, quetiapine, and trazodone DECREASE duloxetine from 60 to 30 mg daily DECREASE gabapentin from 1200 to 600 mg 3x a day; further taper as per your outpatient doctor DECREASE levothyroxine from 75 to 50 mcg daily Please follow up with your primary care doctor within 1 week. Return to the hospital if you experience recurrent or worsening symptoms. Assessment: See Discharge Summary. Discharge Date/Time: 10/05/22 13:49
--- NOTE | 2022-10-05 15:12 | MHC.CM.PN ---
MASON 10/05/22 DX AMS Lives with dtr. She is independent with all functional mobility. DP Dtr will transport patient to [place] at discharge. Patient usually goes to [facility].
== END 2022-10-05 13:49 | disposition left against medical advice (07) ==
LOC: HO.ED 10-04 01:08 → HO.EDOVER 10-04 01:21 → HO.S3 10-04 15:21
PROVIDERS: Physician Assistant; Admitting Provider Student in an Organized Health Care Education/Training Program; Emergency Provider Internal Medicine; Visit Provider Family Medicine
DX: G92.8 Other toxic encephalopathy (principal); N17.9 Acute kidney failure, unspecified; D64.9 Anemia, unspecified; Z79.899 Other long term (current) drug therapy
CPT/HCPCS: 36415; 51701; 70450; 71250; 72125; 74176; 80048; 80053; 80143; 80179; 80307; 81003; 82140; 82272; 82550; 82607; 82746; 82803; 82947; 83540; 83605; 83615; 83735; 84295; 84439; 84443; 84484; 85025; 85027; 85045; 85610; 85730; 86780; 86850; 86900; 86901; 87040; 87389; 93005; 96361; 96365; 96372; 96375; 99221; 99285; J1200; J1650; J2060